=== PATIENT | female | born 1995 | race Caucasian/White ===

== ENCOUNTER 2021-09-15 13:09 | Day surgery (SDC) | payer BC ==
[~2021-09-15] VITALS: Ht 152.4 cm; Wt 91.4 kg
[2021-09-15] MEDS ORDERED: PERCOCET 325 MG1 TA2 PO (13:52)
[2021-09-15] MEDS ORDERED: MOTRIN 800800 MG/TAB PO (13:53)
[2021-09-15 14:20] VITALS: BP 146/101; PULSE 82; TEMP 98.1
[2021-09-15] MEDS ORDERED: FLOMAX 0.40.4 MG/CAP PO (15:49)
[2021-09-15 16:22] VITALS: BP 120/73; PULSE 91; TEMP 98.2
--- NOTE | 2021-09-15 16:22 | NUR ---
Pt returns to [facility] from PACU, awake and alert and feels the need to void. VSS and pt assisted up to the bathroom, gait steady and pt voids without difficulty, some blood noted to urine per pt, no clots. Minimal discomfort with voiding, has a [address] and would like a pain medication before leaving, will treat per orders. Pt provided a muffin and water. [id number] at bedside. Call light in reach.
[2021-09-15 16:35] VITALS: BP 139/91; PULSE 76
[2021-09-15 16:50] VITALS: BP 123/79; PULSE 89
--- NOTE | 2021-09-15 16:50 | NUR ---
Pt awake and alert and denies needs. Wanting to go home. IV discontinued and pt gets dressed. VSS. Call light in reach.
--- NOTE | 2021-09-15 17:00 | NUR ---
Pt requests a return to work noted and Dr. Walton notified and order received to send note home saying she can return to work tomorrow with bathroom breaks frequently as needed. Provided to the pt.
--- NOTE | 2021-09-15 17:20 | NUR ---
Discharge instructions given to pt and her family and understanding verbalized, will call for follow up appointment. 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 Pt has pain medications already from pharmacy. Pt taken out via wheelchair to private car and left in care of her [id number].
[2021-09-15 17:31] VITALS: BP 135/73; PULSE 85; TEMP 98.2
== END 2021-09-15 17:20 | disposition home or self-care (01) ==
LOC: SDCO 13:09
DX: N20.1 Calculus of ureter (principal); E66.9 Obesity, unspecified; E28.2 Polycystic ovarian syndrome; F32.A Depression, unspecified; F41.9 Anxiety disorder, unspecified; Z90.89 Acquired absence of other organs; Z79.899 Other long term (current) drug therapy; Z68.39 Body mass index [BMI] 39.0-39.9, adult
CPT/HCPCS: C1769; C2617; J1100; J2405; J3010; J7120; Q9967

== ENCOUNTER → 2023-12-27 | Outpatient (CLI) | payer OTHER ==
[~2023-12-27] MED LIST: FLOMAX 0.40.4 MG/CAP PO; MOTRIN 800800 MG/TAB PO; PERCOCET 325 MG1 TA2 PO
== END ==
LOC: COL.RAD 12:13
DX: N83.02 Follicular cyst of left ovary (principal)